=== PATIENT | female | born 1970 | race Caucasian/White ===

== ENCOUNTER 2017-05-06 21:30 | Emergency (ER) | payer MEDICAID ==
[~2017-05-06] VITALS: Ht 162.6 cm; Wt 62.2 kg
[~2017-05-06 21:30] MED LIST: CARB1TAB22 PO; CARI350T PO; CLON2TAB PO; DIVA500T2 PO; GABA400C PO; LURA40TA PO; PANT40TA3 PO; TRAZ300T6 PO
[2017-05-06] MEDS ORDERED: METHOCARBAMOL 750 MG TABLET ONE (23:23)
[2017-05-06] MEDS ORDERED: HYDROcodone/APAP 5/325 TABLET ONE (23:23)
[2017-05-06] MEDS ORDERED: IBUPROFEN 200 MG TABLET ONE (23:23)
[2017-05-06] MEDS ORDERED: METHOCARBAMOL 750 MG TABLET PO ONE (23:30)
[2017-05-06] MEDS ORDERED: HYDROcodone/APAP 5/325 TABLET PO ONE (23:30)
[2017-05-06] MEDS ORDERED: IBUPROFEN 200 MG TABLET PO ONE (23:30)
[2017-05-07 00:48] VITALS: BP 120/84
== END 2017-05-06 22:53 | disposition home or self-care (01) ==
LOC: ED 22:47
DX: S16.1XXA Strain of muscle, fascia and tendon at neck level, initial encounter (principal); X58.XXXA Exposure to other specified factors, initial encounter; Y93.89 Activity, other specified; Y99.8 Other external cause status; Y92.89 Other specified places as the place of occurrence of the external cause
CPT/HCPCS: 99284

== ENCOUNTER 2017-10-03 16:40 | Emergency (ER) | payer MEDICAID ==
[~2017-10-03] VITALS: Ht 162.6 cm; Wt 69.5 kg
[2017-10-03 16:41] VITALS: BP 108/72
[2017-10-03] MEDS ORDERED: IBUPROFEN 200 MG TABLET PO ONE (18:00)
[2017-10-03] MEDS ORDERED: IBUPROFEN 200 MG TABLET ONE (18:07)
== END 2017-10-03 19:13 | disposition home or self-care (01) ==
LOC: ED 19:07
DX: S93.492A Sprain of other ligament of left ankle, initial encounter (principal); G89.29 Other chronic pain; M25.572 Pain in left ankle and joints of left foot; X58.XXXA Exposure to other specified factors, initial encounter; Y93.89 Activity, other specified; Y92.89 Other specified places as the place of occurrence of the external cause; Y99.8 Other external cause status
CPT/HCPCS: 99284

== ENCOUNTER 2019-01-09 18:31 | Emergency (ER) | payer MEDICAID ==
[~2019-01-09] VITALS: Ht 162.6 cm; Wt 70.0 kg
[2019-01-09 19:05] VITALS: BP 114/70
--- NOTE | 2019-01-09 20:00 | NUR ---
Patient/Caregiver given discharge instructions and they have confirmed that they understand the instructions. Patient ambulatory with steady gait.
== END 2019-01-09 20:36 | disposition home or self-care (01) ==
LOC: ED 20:00
DX: G89.29 Other chronic pain (principal); M25.572 Pain in left ankle and joints of left foot; F17.200 Nicotine dependence, unspecified, uncomplicated; J44.9 Chronic obstructive pulmonary disease, unspecified
CPT/HCPCS: 99283

== ENCOUNTER 2019-05-24 22:44 | Emergency (ER) | payer MEDICAID ==
[~2019-05-24] VITALS: Ht 162.6 cm; Wt 70.0 kg
[2019-05-24] MEDS ORDERED: LORazepam 1MG TABLET ONE (23:35)
[2019-05-24 23:40] VITALS: BP 117/68
[2019-05-25] MEDS ORDERED: LORazepam 1MG TABLET PO ONE
== END 2019-05-24 23:58 | disposition home or self-care (01) ==
LOC: ED 23:27
DX: F41.1 Generalized anxiety disorder (principal); J44.9 Chronic obstructive pulmonary disease, unspecified; F17.200 Nicotine dependence, unspecified, uncomplicated; Z72.9 Problem related to lifestyle, unspecified
CPT/HCPCS: 99284

== ENCOUNTER 2019-07-08 19:15 | Emergency (ER) | payer MEDICAID ==
[~2019-07-08] VITALS: Ht 162.6 cm; Wt 79.5 kg
[2019-07-08 19:17] VITALS: BP 91/62
== END 2019-07-08 20:16 | disposition home or self-care (01) ==
LOC: ED 20:00
DX: G89.29 Other chronic pain (principal); M25.572 Pain in left ankle and joints of left foot; J44.9 Chronic obstructive pulmonary disease, unspecified; F32.9 Major depressive disorder, single episode, unspecified; Z72.9 Problem related to lifestyle, unspecified
CPT/HCPCS: 99283

== ENCOUNTER 2019-11-02 10:05 | Inpatient (IN) | payer MEDICAID ==
[~2019-11-02] VITALS: Ht 162.6 cm; Wt 84.6 kg
[2019-11-02 11:12] LABS: BASOPHILS # (AUTO) 0.08 x10^3/uL (0-0.1); BASOPHILS % (AUTO) 1 % (0-1); EOSINOPHILS # (AUTO) 0.25 x10^3/uL (0-0.4); EOSINOPHILS % (AUTO) 2 % (1-7); LYMPHOCYTES # (AUTO) 1.55 x10^3/uL (1-3.4); LYMPHOCYTES % (AUTO) 11 % (22-44); MD NO; MEAN CORPUSCULAR HGB CONC 33.7 g/dL (32.4-35.8); MEAN PLATELET VOLUME 6.7 fL (7.4-10.4); MONOCYTES # (AUTO) 0.26 x10^3/uL (0.2-0.8); MONOCYTES % (AUTO) 2 % (2-9); NEUTROPHILS # (AUTO) 12.37 x10^3/uL (1.8-6.8); NEUTROPHILS % (AUTO) 85 % (42-75); PLATELET COUNT 222 x10^3/uL (130-400); RED BLOOD COUNT 3.69 x10^6/uL (3.82-5.3); RED CELL DISTRIBUTION WIDTH 17.5 % (9.6-15.2)
[2019-11-02 11:20] LABS: ALBUMIN 4.1 g/dL (3.4-5.0); ANION GAP 8 mmol/L (5-15); CALCIUM 9.3 mg/dL (8.5-10.1); CHLORIDE 105 mmol/L (98-107); CREATININE 1.16 mg/dL (0.55-1.02)
--- NOTE | 2019-11-02 11:24 | NUR ---
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
[2019-11-02] MEDS ORDERED: AMPICILLIN/SULBACTAM 3 GM in SODIUM CHLORIDE 0.9% 100 ML IV ONE (11:36)
--- NOTE | 2019-11-02 11:36 | NUR ---
PT TO ED FOR RIGHT 4TH FINGER ERYTHEMA WITH STREAKING TO MID AXILLARY AREA SINCE SHE WOKE UP THIS AM. PT CONNECTED TO MONITORS. VSS. PT APPEARS MOANING AND GRUNTING IN PAIN. DR. BLANCO UPDATED. NO NEEDS EXPRESSED. CALL LIGHT WITHIN REACH. AWAITING EDMD ASSESSMENT.
[2019-11-02] MEDS ORDERED: LIDOCAINE-MPF 1%, 5ML ONE (11:48)
[2019-11-02] MEDS ORDERED: HYDROmorphone 2 MG/ML, 1ML IVPush PRN (12:00)
[2019-11-02] MEDS ORDERED: LIDOCAINE 2%, 10ML INFIL ONE (12:00)
[2019-11-02] MEDS ORDERED: LIDOCAINE-MPF 1%, 5ML INFIL ONE (12:00)
[2019-11-02] MEDS ORDERED: HYDROmorphone 1 MG/ML, 1ML INJ ONE (12:11)
--- NOTE | 2019-11-02 12:30 | NUR ---
PT RESTING IN ROOM. WARMS BLANKET PROVIDED FOR COMFORT. VSS. PIV ESTABLISHED AND BC X1 DRAWN. LABT OBS TO DRAW BC X2. IV ABX STARTED AFTER BC X2 DRAWN. NO OTHER NEEDS EXPRESSED. CALL LIGHT WIHTIN REACH. AWAITING ROOM ASSIGNMENT.
--- NOTE | 2019-11-02 12:40 | NUR ---
PT DECLINING PAIN MEDICATION AT THIS TIME. MED PULLED FROM [facility] AND WILL BE RETURNED WITH WITNESS.
[2019-11-02] MEDS ORDERED: POTASSIUM CHLORIDE 20 MEQ in LACTATED RINGERS 1,000 ML IV SCH (13:06)
[2019-11-02] MEDS ORDERED: ONDANSETRON 2MG/ML, 2ML IVPush PRN (13:30)
[2019-11-02] MEDS ORDERED: ACETAMINOPHEN 325 MG TABLET PO PRN (13:30)
[2019-11-02] MEDS ORDERED: LABETALOL 5MG/ML, 20ML IVPush PRN (13:30)
[2019-11-02] MEDS ORDERED: POLYETHYLENE GLYCOL 17 GM PACKET PO PRN (13:30)
[2019-11-02] MEDS ORDERED: hydrALAzine 20 MG/ML, 1ML IVPush PRN (13:30)
[2019-11-02] MEDS ORDERED: GUAIFENESIN/DM 200-20MG, 10ML UDC PO PRN (13:30)
[2019-11-02] MEDS ORDERED: TRAZODONE 50MG TABLET PO PRN (13:30)
[2019-11-02] MEDS: NICOTINE 14MG/24 HR PATCH.TD24 TD SCH (13:30)
[2019-11-02] MEDS ORDERED: BUTALB/APAP/CAFFEINE 50MG/325MG/40MG PO PRN ×2 (13:30)
[2019-11-02] MEDS ORDERED: ONDANSETRON ODT 4 MG PO PRN (13:30)
[2019-11-02 13:48] LABS: FREE T4 (FREE THYROXINE) 0.21 ng/dL (0.76-1.46)
[2019-11-02] MEDS: HYDROmorphone 2 MG/ML, 1ML IVPush PRN ×2 (15:23→22:46)
[2019-11-02 15:30] VITALS: BP 108/75
[2019-11-02] MEDS: AMPICILLIN/SULBACTAM 3 GM in SODIUM CHLORIDE 0.9% 100 ML IV SCH (20:24)
[2019-11-02 21:12] VITALS: BP 91/62
[2019-11-03 01:36] VITALS: BP 101/72
[2019-11-03] MEDS: AMPICILLIN/SULBACTAM 3 GM in SODIUM CHLORIDE 0.9% 100 ML IV SCH ×3 (04:30→23:01)
[2019-11-03 05:05] LABS: ANION GAP 6 mmol/L (5-15); CALCIUM 8.5 mg/dL (8.5-10.1); CHLORIDE 107 mmol/L (98-107); CREATININE 0.87 mg/dL (0.55-1.02)
[2019-11-03 05:08] LABS: BASOPHILS # (AUTO) 0.05 x10^3/uL (0-0.1); BASOPHILS % (AUTO) 1 % (0-1); EOSINOPHILS # (AUTO) 0.11 x10^3/uL (0-0.4); EOSINOPHILS % (AUTO) 1 % (1-7); LYMPHOCYTES # (AUTO) 1.78 x10^3/uL (1-3.4); LYMPHOCYTES % (AUTO) 16 % (22-44); MD NO; MEAN CORPUSCULAR HEMOGLOBIN 33.1 pg (27.0-34.8); MEAN CORPUSCULAR HGB CONC 33.8 g/dL (32.4-35.8); MEAN CORPUSCULAR VOLUME 97.9 fL (80-100); MONOCYTES # (AUTO) 0.49 x10^3/uL (0.2-0.8); MONOCYTES % (AUTO) 5 % (2-9); NEUTROPHILS # (AUTO) 8.54 x10^3/uL (1.8-6.8); NEUTROPHILS % (AUTO) 78 % (42-75); PLATELET COUNT 182 x10^3/uL (130-400); RED BLOOD COUNT 3.66 x10^6/uL (3.82-5.3); RED CELL DISTRIBUTION WIDTH 17.6 % (9.6-15.2)
[2019-11-03] MEDS: HYDROmorphone 2 MG/ML, 1ML IVPush PRN ×4 (06:45→23:45)
[2019-11-03 08:29] VITALS: BP 96/65
[2019-11-03] MEDS ORDERED: VANCOMYCIN PER PHARMACY MC PRN (09:00)
[2019-11-03] MEDS ORDERED: PHARMACOKINETIC MONITORING MC PRN (09:30)
[2019-11-03] MEDS ORDERED: PHARMACOKINETIC CONSULTATION MC ONE (09:30)
[2019-11-03 09:49] LABS: HCT (SEDRATE) 34.7 % (34.6-47.8)
[2019-11-03] MEDS ORDERED: GADOTERATE 7.5 MMOL/15 ML SYR ONE (11:13)
[2019-11-03] MEDS: VANCOMYCIN 1,400 MG in SODIUM CHLORIDE 0.9% 250 ML IV SCH ×2 (11:31→23:44)
[2019-11-03] MEDS: NICOTINE 14MG/24 HR PATCH.TD24 TD SCH (12:41)
[2019-11-03 13:57] VITALS: BP 80/53
[2019-11-03] MEDS ORDERED: LEVOTHYROXINE 100 MCG INJ IVPush ONE (15:00)
[2019-11-03] MEDS: GUAIFENESIN 200 MG TABLET PO SCH ×2 (16:48→20:37)
[2019-11-03 20:31] VITALS: BP 100/63
[2019-11-04 01:54] VITALS: BP 94/58
[2019-11-04] MEDS: GUAIFENESIN 200 MG TABLET PO SCH ×6 (06:00→21:19)
[2019-11-04] MEDS: LEVOTHYROXINE 100 MCG TABLET PO SCH ×2 (06:00→06:32)
[2019-11-04 06:14] LABS: BASOPHILS # (AUTO) 0.06 x10^3/uL (0-0.1); BASOPHILS % (AUTO) 1 % (0-1); EOSINOPHILS # (AUTO) 0.18 x10^3/uL (0-0.4); EOSINOPHILS % (AUTO) 2 % (1-7); LYMPHOCYTES # (AUTO) 2.15 x10^3/uL (1-3.4); LYMPHOCYTES % (AUTO) 26 % (22-44); MD NO; MEAN CORPUSCULAR HGB CONC 33.4 g/dL (32.4-35.8); MEAN CORPUSCULAR VOLUME 98.8 fL (80-100); MEAN PLATELET VOLUME 6.9 fL (7.4-10.4); MONOCYTES # (AUTO) 0.45 x10^3/uL (0.2-0.8); MONOCYTES % (AUTO) 6 % (2-9); NEUTROPHILS # (AUTO) 5.38 x10^3/uL (1.8-6.8); NEUTROPHILS % (AUTO) 66 % (42-75); PLATELET COUNT 174 x10^3/uL (130-400); RED BLOOD COUNT 3.27 x10^6/uL (3.82-5.3); RED CELL DISTRIBUTION WIDTH 18.4 % (9.6-15.2)
[2019-11-04 06:34] LABS: ANION GAP 3 mmol/L (5-15); CALCIUM 8.1 mg/dL (8.5-10.1); CHLORIDE 110 mmol/L (98-107)
[2019-11-04 06:37] LABS: CREATININE 0.76 mg/dL (0.55-1.02)
[2019-11-04] MEDS: AMPICILLIN/SULBACTAM 3 GM in SODIUM CHLORIDE 0.9% 100 ML IV SCH ×3 (06:43→22:49)
[2019-11-04] MEDS: HYDROmorphone 2 MG/ML, 1ML IVPush PRN ×4 (07:46→21:20)
[2019-11-04 09:35] VITALS: BP 97/65
[2019-11-04] MEDS: VANCOMYCIN 1,400 MG in SODIUM CHLORIDE 0.9% 250 ML IV SCH (11:06)
[2019-11-04] MEDS: NICOTINE 14MG/24 HR PATCH.TD24 TD SCH (13:30)
[2019-11-04] MEDS: D5%-0.45% NACL 1,000 ML IV SCH (13:34)
[2019-11-04 15:24] VITALS: BP 95/59
[2019-11-04 19:00] VITALS: BP 94/55
[2019-11-05] VITALS (7 sets, daily range): BP systolic 82–104; BP diastolic 49–65
[2019-11-05] MEDS: VANCOMYCIN 1,400 MG in SODIUM CHLORIDE 0.9% 250 ML IV SCH (00:06)
[2019-11-05] MEDS: D5%-0.45% NACL 1,000 ML IV SCH ×3 (02:54→16:45)
[2019-11-05] MEDS: HYDROmorphone 2 MG/ML, 1ML IVPush PRN ×3 (04:52→17:27)
[2019-11-05 04:53] LABS: BASOPHILS # (AUTO) 0.05 x10^3/uL (0-0.1); BASOPHILS % (AUTO) 1 % (0-1); EOSINOPHILS # (AUTO) 0.23 x10^3/uL (0-0.4); EOSINOPHILS % (AUTO) 3 % (1-7); LYMPHOCYTES # (AUTO) 2.14 x10^3/uL (1-3.4); LYMPHOCYTES % (AUTO) 29 % (22-44); MD NO; MEAN CORPUSCULAR HEMOGLOBIN 32.9 pg (27.0-34.8); MEAN CORPUSCULAR HGB CONC 33.3 g/dL (32.4-35.8); MEAN PLATELET VOLUME 7.2 fL (7.4-10.4); MONOCYTES # (AUTO) 0.34 x10^3/uL (0.2-0.8); MONOCYTES % (AUTO) 5 % (2-9); NEUTROPHILS # (AUTO) 4.54 x10^3/uL (1.8-6.8); NEUTROPHILS % (AUTO) 62 % (42-75); PLATELET COUNT 177 x10^3/uL (130-400); RED BLOOD COUNT 3.32 x10^6/uL (3.82-5.3)
[2019-11-05 05:07] LABS: ANION GAP 4 mmol/L (5-15); CHLORIDE 110 mmol/L (98-107); CREATININE 0.83 mg/dL (0.55-1.02)
[2019-11-05] MEDS: GUAIFENESIN 200 MG TABLET PO SCH ×5 (05:49→21:38)
[2019-11-05] MEDS: LEVOTHYROXINE 100 MCG TABLET PO SCH (05:50)
[2019-11-05] MEDS: AMPICILLIN/SULBACTAM 3 GM in SODIUM CHLORIDE 0.9% 100 ML IV SCH (07:41)
[2019-11-05] MEDS ORDERED: FENTANYL PF 100 MCG/2ML IV PRN (11:00)
[2019-11-05] MEDS ORDERED: MEPERIDINE/PF 25MG/ML,1ML IVPush PRN (11:00)
[2019-11-05] MEDS ORDERED: EPHEDRINE 50 MG/ML, 1ML IVPush PRN (11:00)
[2019-11-05] MEDS ORDERED: HYDROmorphone 2 MG/ML, 1ML IVPush PRN (11:00)
[2019-11-05] MEDS ORDERED: OXYcodone 5 MG/5 ML ORAL.SOL UDC PO PRN (11:00)
[2019-11-05] MEDS ORDERED: ACETAMINOPHEN 325 MG TABLET PO PRN (11:00)
[2019-11-05] MEDS ORDERED: LABETALOL 5MG/ML, 20ML IV PRN (11:00)
[2019-11-05] MEDS ORDERED: PROMETHAZINE 25 MG/ML, 1ML IV PRN (11:00)
[2019-11-05] MEDS ORDERED: hydrALAzine 20 MG/ML, 1ML IV PRN (11:00)
[2019-11-05] MEDS ORDERED: ONDANSETRON 2MG/ML, 2ML IV PRN (11:00)
[2019-11-05] MEDS ORDERED: FENTANYL PF 100 MCG/2ML ONE ×2 (11:35→12:27)
[2019-11-05] MEDS ORDERED: MIDAZOLAM 1 MG/ML, 2ML ONE ×2 (11:35→12:27)
[2019-11-05] MEDS ORDERED: LIDOCAINE-MPF 2% ,5ML ONE (12:30)
[2019-11-05] MEDS ORDERED: ONDANSETRON 2MG/ML, 2ML ONE (12:30)
[2019-11-05] MEDS ORDERED: EPHEDRINE 50 MG/ML, 1ML ONE (12:30)
[2019-11-05] MEDS ORDERED: PROPOFOL 10 MG/ML, 20ML ONE (12:30)
[2019-11-05] MEDS: NICOTINE 14MG/24 HR PATCH.TD24 TD SCH (13:30)
[2019-11-05] MEDS: CEFAZOLIN 2,000 MG in SODIUM CHLORIDE 0.9% 50 ML IV SCH ×2 (14:13→21:37)
[2019-11-05] MEDS ORDERED: HYDROcodone/APAP 5/325 TABLET PO ONE (22:00)
[2019-11-05] MEDS ORDERED: SODIUM CHLORIDE 0.9%, 500ML IVBOLUS ONE (22:00)
[2019-11-06] MEDS: D5%-0.45% NACL 1,000 ML IV SCH (02:13)
[2019-11-06 02:16] VITALS: BP 93/62
[2019-11-06] MEDS: CEFAZOLIN 2,000 MG in SODIUM CHLORIDE 0.9% 50 ML IV SCH ×3 (05:24→21:52)
[2019-11-06] MEDS: GUAIFENESIN 200 MG TABLET PO SCH ×4 (05:25→21:52)
[2019-11-06] MEDS: LEVOTHYROXINE 100 MCG TABLET PO SCH (05:25)
[2019-11-06] MEDS: HYDROmorphone 2 MG/ML, 1ML IVPush PRN (05:25)
[2019-11-06 07:02] VITALS: BP 90/60
[2019-11-06 08:39] LABS: BASOPHILS # (AUTO) 0.06 x10^3/uL (0-0.1); BASOPHILS % (AUTO) 1 % (0-1); EOSINOPHILS # (AUTO) 0.13 x10^3/uL (0-0.4); EOSINOPHILS % (AUTO) 2 % (1-7); LYMPHOCYTES # (AUTO) 2.28 x10^3/uL (1-3.4); LYMPHOCYTES % (AUTO) 41 % (22-44); MD NO; MEAN CORPUSCULAR HEMOGLOBIN 32.3 pg (27.0-34.8); MEAN CORPUSCULAR HGB CONC 33.2 g/dL (32.4-35.8); MEAN CORPUSCULAR VOLUME 97.3 fL (80-100); MEAN PLATELET VOLUME 6.8 fL (7.4-10.4); MONOCYTES # (AUTO) 0.24 x10^3/uL (0.2-0.8); MONOCYTES % (AUTO) 4 % (2-9); NEUTROPHILS # (AUTO) 2.79 x10^3/uL (1.8-6.8); NEUTROPHILS % (AUTO) 51 % (42-75); PLATELET COUNT 207 x10^3/uL (130-400); RED BLOOD COUNT 3.44 x10^6/uL (3.82-5.3); RED CELL DISTRIBUTION WIDTH 18.1 % (9.6-15.2)
[2019-11-06 08:44] LABS: ANION GAP 3 mmol/L (5-15); CHLORIDE 107 mmol/L (98-107); CREATININE 0.99 mg/dL (0.55-1.02)
[2019-11-06] MEDS: HYDROcodone/APAP 5/325 TABLET PO PRN ×3 (09:28→23:50)
[2019-11-06] MEDS ORDERED: SODIUM CHLORIDE 0.9% 1,000 ML IV SCH ×3 (09:30→10:00)
[2019-11-06] MEDS: NICOTINE 14MG/24 HR PATCH.TD24 TD SCH (13:12)
[2019-11-06 14:15] VITALS: BP 92/61
[2019-11-06] MEDS ORDERED: SODIUM CHLORIDE 0.45% 1,000 ML IV SCH (15:00)
[2019-11-06] MEDS: HYDROCORTISONE 20 MG TABLET PO SCH (15:26)
[2019-11-06 19:49] VITALS: BP 100/66
[2019-11-06] MEDS: HYDROCORTISONE 10 MG TABLET PO SCH (21:52)
[2019-11-07 02:08] VITALS: BP 108/72
[2019-11-07] MEDS: LEVOTHYROXINE 100 MCG TABLET PO SCH (05:37)
[2019-11-07] MEDS: CEFAZOLIN 2,000 MG in SODIUM CHLORIDE 0.9% 50 ML IV SCH ×3 (05:37→22:01)
[2019-11-07] MEDS: GUAIFENESIN 200 MG TABLET PO SCH ×3 (05:37→22:01)
[2019-11-07 07:20] VITALS: BP 113/75
[2019-11-07] MEDS: NICOTINE 14MG/24 HR PATCH.TD24 TD SCH (07:25)
[2019-11-07] MEDS: HYDROCORTISONE 20 MG TABLET PO SCH (07:48)
[2019-11-07] MEDS: HYDROcodone/APAP 5/325 TABLET PO PRN ×3 (07:49→20:42)
[2019-11-07] MEDS ORDERED: MAGNESIUM SULFATE PMX 2GM/50ML 50 ML IV ONE (10:00)
[2019-11-07 14:13] VITALS: BP 108/73
[2019-11-07 19:17] VITALS: BP 109/75
[2019-11-07] MEDS: HYDROCORTISONE 10 MG TABLET PO SCH (22:01)
[2019-11-08 03:21] VITALS: BP 97/63
[2019-11-08] MEDS: GUAIFENESIN 200 MG TABLET PO SCH ×2 (05:32→07:07)
[2019-11-08] MEDS: CEFAZOLIN 2,000 MG in SODIUM CHLORIDE 0.9% 50 ML IV SCH (05:32)
[2019-11-08] MEDS: LEVOTHYROXINE 100 MCG TABLET PO SCH (05:32)
[2019-11-08] MEDS ORDERED: MAGNESIUM SULFATE PMX 2GM/50ML 50 ML IV ONE (07:00)
[2019-11-08] MEDS: NICOTINE 14MG/24 HR PATCH.TD24 TD SCH (07:07)
[2019-11-08 07:50] VITALS: BP 135/88
[2019-11-08] MEDS: HYDROcodone/APAP 5/325 TABLET PO PRN (08:59)
[2019-11-08] MEDS: HYDROCORTISONE 20 MG TABLET PO SCH (08:59)
[2019-11-08] MEDS ORDERED: MAGNESIUM OXIDE 400 MG TABLET PO SCH (09:00)
[2019-11-08] MEDS ORDERED: HYDR50TA13 PO (09:48)
[2019-11-08] MEDS ORDERED: DIVA500T17 PO (09:48)
[2019-11-08] MEDS ORDERED: LEVO112T4 PO (09:48)
[2019-11-08 10:00] LABS: BASOPHILS # (AUTO) 0.16 x10^3/uL (0-0.1); BASOPHILS % (AUTO) 2 % (0-1); EOSINOPHILS # (AUTO) 0.09 x10^3/uL (0-0.4); EOSINOPHILS % (AUTO) 1 % (1-7); LYMPHOCYTES # (AUTO) 2.85 x10^3/uL (1-3.4); LYMPHOCYTES % (AUTO) 39 % (22-44); MD NO; MEAN CORPUSCULAR HGB CONC 33.8 g/dL (32.4-35.8); MEAN CORPUSCULAR VOLUME 97.4 fL (80-100); MEAN PLATELET VOLUME 6.4 fL (7.4-10.4); MONOCYTES # (AUTO) 0.37 x10^3/uL (0.2-0.8); MONOCYTES % (AUTO) 5 % (2-9); NEUTROPHILS # (AUTO) 3.81 x10^3/uL (1.8-6.8); NEUTROPHILS % (AUTO) 52 % (42-75); PLATELET COUNT 256 x10^3/uL (130-400); RED BLOOD COUNT 3.58 x10^6/uL (3.82-5.3); RED CELL DISTRIBUTION WIDTH 17.6 % (9.6-15.2)
[2019-11-08 10:07] LABS: ALANINE AMINOTRANSFERASE 41 U/L (12-78); ALBUMIN 3.3 g/dL (3.4-5.0); ANION GAP 4 mmol/L (5-15); CALCIUM 9.6 mg/dL (8.5-10.1); CHLORIDE 107 mmol/L (98-107); CREATININE 0.88 mg/dL (0.55-1.02)
[2019-11-08 10:10] LABS: ALKALINE PHOSPHATASE 57 U/L (45-117); BILIRUBIN,TOTAL 0.3 mg/dL (0.2-1.0); TOTAL PROTEIN 7.4 g/dL (6.4-8.2)
[2019-11-08 14:11] VITALS: BP 105/70
[2019-11-08] MEDS ORDERED: MAGN400T50 PO (14:31)
[2019-11-08] MEDS ORDERED: CEPH-376 PO (14:31)
[2019-11-08] MEDS ORDERED: ACID1TAB7 PO (14:31)
[2019-11-08] MEDS ORDERED: CEPHALEXIN 500 MG CAPSULE PO SCH (16:00)
[2019-11-08] MEDS ORDERED: LACTOBACILLUS CHEW TABLET PO SCH (16:00)
== END 2019-11-08 16:40 | disposition home or self-care (01) | DRG 710 ==
LOC: ED 11:57 → EDIP 11:58 → 3N 15:14 → DCLOUNGE 11-08 16:27
PROVIDERS: ADMIT Family Medicine; ATTEND Internal Medicine
PROC: 0LB70ZZ Excision of Right Hand Tendon, Open Approach (ICD-10-PCS; principal; 2019-11-05 13:00)
DX: A41.9 Sepsis, unspecified organism (principal); N17.0 Acute kidney failure with tubular necrosis; E27.40 Unspecified adrenocortical insufficiency; D63.8 Anemia in other chronic diseases classified elsewhere; E03.9 Hypothyroidism, unspecified; E16.2 Hypoglycemia, unspecified; E83.42 Hypomagnesemia; M65.88 Other synovitis and tenosynovitis, other site; E23.0 Hypopituitarism; F12.90 Cannabis use, unspecified, uncomplicated; G40.909 Epilepsy, unspecified, not intractable, without status epilepticus; J44.9 Chronic obstructive pulmonary disease, unspecified; L03.011 Cellulitis of right finger; M79.7 Fibromyalgia; Z59.0 Homelessness; Z91.19 Patient's noncompliance with other medical treatment and regimen
CPT/HCPCS: 36415; 80048; 80053; 82040; 82533; 83735; 84100; 84439; 84443; 84481; 85025; 85651; 86140; 87040; 87070; 87075; 87077; 87147; 87186; 87205; 96374; 99285; G0378; J0295; J0690; J1170; J2001; J2250; J2405; J2704; J3010; J3370; J3480; A9575; J3475; J7030; J7040; J7050; J7120

== ENCOUNTER 2020-08-27 14:46 | Emergency (ER) | payer SELFPAY ==
[~2020-08-27] VITALS: Ht 162.6 cm; Wt 79.9 kg
[~2020-08-27 14:46] MED LIST changes: +ACID1TAB7 PO; +CEPH-376 PO; +DIVA500T17 PO; +HYDR50TA99 PO; +LEVO112T4 PO; +MAGN400T50 PO
[2020-08-27 14:49] VITALS: BP 110/64
--- NOTE | 2020-08-27 15:57 | NUR ---
PATIENT COMPANION: PT AMBULATORY TO ROOM FROM LOBBY
[2020-08-27] MEDS ORDERED: NEOSPORIN OINT. PKT 1 PACKET ONE (16:46)
--- NOTE | 2020-08-27 17:03 | NUR ---
BACITRACIN DRESSING APPLIED TO RIGHT HAND PER OCTAVIO MCPHERSON
== END 2020-08-27 17:10 | disposition home or self-care (01) ==
LOC: ED 17:00
DX: L03.011 Cellulitis of right finger (principal); M79.641 Pain in right hand; M79.89 Other specified soft tissue disorders; J44.9 Chronic obstructive pulmonary disease, unspecified; F17.210 Nicotine dependence, cigarettes, uncomplicated; Z86.39 Personal history of other endocrine, nutritional and metabolic disease
CPT/HCPCS: 10060; 99283; 99406

== ENCOUNTER 2021-08-15 16:14 | Emergency (ER) | payer SELFPAY ==
[~2021-08-15] VITALS: Ht 162.6 cm; Wt 82.0 kg
--- NOTE | 2021-08-15 16:25 | NUR ---
BIB AMBULANCE DUE TO SEIZURE LIKE ACTIVITY REPORTED FROM FAMILY. PT HAS A HX OF FIBROMYALGIA, AND ASTHMA. PT STATES SHE IS UNDER EXTREME STRESS. PLACED ON ROCK CLIMBING TEAM MEMBER SINUS, AND CYCLE VS, AND CONTINOUS SP02 AT 96%
--- NOTE | 2021-08-15 17:50 | NUR ---
PT RESTING, AWAITING MD ORDERS
--- NOTE | 2021-08-15 18:24 | NUR ---
PT REFUSED LAB DRAW, DISCUSSED THE RISK TO PATIENT. DISCUSSED PT REFUSAL WITH DR. MATTHEW. ORDERED MEAL FOR PATIENT
--- NOTE | 2021-08-15 18:46 | NUR ---
REPORT TO SNOW OSMAN, PLAN OF CARE DISCUSSED
--- NOTE | 2021-08-15 18:48 | NUR ---
FIRST CONTACT WITH PT. JASMIN. PT UP AND TALKING WITH FAMILY MEMBER. WILL CONTINUE TO MONITOR.
[2021-08-15 19:28] VITALS: BP 155/75
== END 2021-08-15 19:30 | disposition home or self-care (01) ==
LOC: ED 16:19
DX: G40.309 Generalized idiopathic epilepsy and epileptic syndromes, not intractable, without status epilepticus (principal); J44.9 Chronic obstructive pulmonary disease, unspecified; R51.9 Headache, unspecified; R94.31 Abnormal electrocardiogram [ECG] [EKG]
CPT/HCPCS: 93005; 99283